=== PATIENT | male | born 1975 | race American Indian/Alaskan Native ===

== ENCOUNTER 2016-06-06 05:57 | Emergency (ER) | payer OTHER ==
[2016-06-06 14:05] VITALS: BP 137/90
== END 2016-06-06 14:51 | disposition left against medical advice (07) ==
LOC: ED 05:57
DX: R07.9 Chest pain, unspecified (principal); Z53.21 Procedure and treatment not carried out due to patient leaving prior to being seen by health care provider
CPT/HCPCS: 93005; 93010